=== PATIENT | male | born 1965 | race Caucasian/White ===

== ENCOUNTER 2018-09-05 10:53 | Inpatient (IN) | payer OTHER ==
[~2018-09-05] VITALS: Ht 170.2 cm; Wt 82.3 kg
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
[2018-09-05] MEDS ORDERED: SODIUM CHLORIDE 0.9% 1L BAG IV* STA (11:27)
[2018-09-05] MEDS ORDERED: [UNRECOGNIZED DRUG - CODE] PO (13:35)
[2018-09-05] MEDS ORDERED: LISI-471 PO (13:35)
[2018-09-05] MEDS ORDERED: HYDR-3980 PO (13:35)
[2018-09-05] MEDS ORDERED: CARI350T29 PO (13:35)
[2018-09-05] MEDS ORDERED: KETOROLAC 15 MG INJ IV STA (14:51)
[2018-09-05] MEDS ORDERED: MEROPENEM 1 GM/50ML(PMX) 50 ML IVPB STA (15:01)
[2018-09-05] MEDS ORDERED: morphine 4 MG/ML VIAL IV STA (15:43)
[2018-09-05] MEDS ORDERED: ONDANSETRON 4 MG INJ IV STA (15:43)
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
[2018-09-05] MEDS ORDERED: NACL 0.9% 3 ML SYG IV SCH (16:30)
[2018-09-05] MEDS ORDERED: KETOROLAC 30 MG INJ IV PRN (16:30)
[2018-09-05] MEDS ORDERED: DOCUSATE SODIUM 100 MG CAP PO PRN (16:30)
[2018-09-05] MEDS ORDERED: ONDANSETRON 4 MG INJ IV PRN (16:30)
[2018-09-05] MEDS ORDERED: MAGNESIUM HYDROXIDE 30ML CUP PO PRN (16:30)
[2018-09-05] MEDS ORDERED: ACETAMINOPHEN 325 MG TAB PO PRN (16:30)
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
[2018-09-05] MEDS ORDERED: SALINE 0.65% 45 ML NAS SPRAY NASAL PRN (18:30)
[2018-09-05] MEDS: morphine 2 MG INJ IV PRN ×2 (19:00→23:43)
[2018-09-05] MEDS: CARISOPRODOL 350 MG TAB PO PRN (19:41)
[2018-09-05 20:44] VITALS: BP 121/65; PULSE 88; RESP 18
[2018-09-05 22:04] VITALS: Ht 170.2 cm; Wt 82.3 kg
[2018-09-05] MEDS: GUAIFENESIN LA 600 MG TABSR PO SCH (22:24)
[2018-09-05] MEDS: HYDROCODONE/APAP (10/325) TAB PO PRN (22:24)
[2018-09-05] MEDS: MEROPENEM 1 GM/50ML(PMX) 50 ML IVPB SCH (22:26)
[2018-09-05] MEDS: NICOTINE (14 MG/24 HR) PATCH TRANSDERM SCH (22:44)
[2018-09-06 02:00] VITALS: BP 110/60; PULSE 87; RESP 20
[2018-09-06] MEDS: morphine 2 MG INJ IV PRN ×4 (05:59→21:12)
[2018-09-06] MEDS: MEROPENEM 1 GM/50ML(PMX) 50 ML IVPB SCH ×3 (05:59→22:08)
[2018-09-06] MEDS: PANTOPRAZOLE (EC) 40 MG TAB PO SCH (06:00)
[2018-09-06] MEDS: HYDROCODONE/APAP (10/325) TAB PO PRN ×3 (07:06→19:52)
[2018-09-06 07:50] VITALS: BP 107/73; PULSE 79; RESP 19
--- NOTE | 2018-09-06 08:08 | PN ---
Date/Time of Note Date/Time of Note DATE: 09/06/18 TIME: 08:01 Assessment/Plan VTE Prophylaxis Risk score (from Ns)>0 risk: 4 SCD applied (from Ns): Yes Pharmacological prophylaxis: LMWH Lines/Catheters IV Catheter Type (from [facility] Mid Line Urinary Cath still in place: Yes Reason Cath still needed: urinary retention Assessment/Plan Hospital Course 52-year-old male paraplegic, has neurogenic bladder and urinary retention. He had augmentation cystoplasty in the past and has been doing self- catheterization. He has been having problems with his self-catheterization. He has been getting recurrent urinary tract infections. In the emergency room I had to do urethral dilatation and insert a 14 [place] coud catheter. The catheter drained only 250 mL last night. But he still has pain therefore I did irrigate the Harper catheter and drained 500 mL. The catheter could get clogged sometime by the mucus. I will have the nurses aspirate the urine every 4 hours using irrigation tray. The urine culture is still pending. Result Diagram: 09/06/18 0706 09/06/18 0706 Results 24hrs Laboratory Tests Test 09/05/18 12:59 09/05/18 13:06 09/05/18 14:30 09/05/18 16:37 White Blood Count 7.6 Red Blood Count 5.10 Hemoglobin 14.5 Hematocrit 45.4 Mean Corpuscular Volume 89.0 Mean Corpuscular 28.4 L Hemoglobin Mean Corpuscular 31.9 L Hemoglobin Concent Red Cell Distribution 13.2 Width Platelet Count 336 Mean Platelet Volume 8.9 Immature Granulocytes % 0.700 H Neutrophils % 56.2 Lymphocytes % 33.5 Monocytes % 7.1 Eosinophils % 1.7 Basophils % 0.8 Nucleated Red Blood 0.0 Cells % Immature Granulocytes # 0.050 H Neutrophils # 4.3 Lymphocytes # 2.5 Monocytes # 0.5 Eosinophils # 0.1 Basophils # 0.1 Nucleated Red Blood 0.0 Cells # Prothrombin Time 12.7 Prothrombin Time Ratio 1.0 INR International 0.94 Normalized Ratio Activated 31.0 Partial Thromboplast Time Sodium Level 143 Potassium Level 4.1 Chloride Level 106 Carbon Dioxide Level 28 Anion Gap 9 Blood Urea Nitrogen 17 Creatinine 0.76 Est Glomerular Filtrat > 60 Rate mL/min Glucose Level 79 Calcium Level 9.6 Total Bilirubin 0.2 Direct Bilirubin 0.00 Indirect Bilirubin 0.2 Aspartate Amino 28 Transf (AST/SGOT) Alanine 19 Aminotransferase (ALT/SG PT) Alkaline Phosphatase 99 Troponin I < 0.012 Total Protein 8.2 H Albumin 4.7 Globulin 3.50 H Albumin/Globulin Ratio 1.34 POC Venous Lactate 1.3 1.3 Urine Color YELLOW Urine Clarity CLOUDY A Urine pH 5.0 Urine Specific Ethel 1.018 Urine Ketones NEGATIVE Urine Nitrite POSITIVE A Urine Bilirubin NEGATIVE Urine Urobilinogen NEGATIVE Urine Leukocyte Esterase 1+ H Urine Microscopic RBC 11 H Urine Microscopic WBC 94 H Urine Squamous FEW Epithelial Cells Urine Amorphous Crystals FEW A Urine Bacteria MODERATE Urine Hemoglobin 1+ H Urine Glucose NEGATIVE Urine Total Protein NEGATIVE Test 09/05/18 20:02 09/06/18 07:06 Lactic Acid Level 1.2 White Blood Count 6.9 Red Blood Count 4.50 L Hemoglobin 12.7 L Hematocrit 39.7 L Mean Corpuscular Volume 88.2 Mean Corpuscular 28.2 L Hemoglobin Mean Corpuscular 32.0 Hemoglobin Concent Red Cell Distribution 13.5 Width Platelet Count 293 Mean Platelet Volume 9.2 Immature Granulocytes % 0.900 H Neutrophils % 41.6 Lymphocytes % 43.1 Monocytes % 8.9 Eosinophils % 3.9 Basophils % 1.6 Nucleated Red Blood 0.0 Cells % Immature Granulocytes # 0.060 H Neutrophils # 2.9 Lymphocytes # 3.0 H Monocytes # 0.6 Eosinophils # 0.3 Basophils # 0.1 Nucleated Red Blood 0.0 Cells # Sodium Level 141 Potassium Level 4.3 Chloride Level 109 Carbon Dioxide Level 27 Anion Gap 5 Blood Urea Nitrogen Pending Creatinine Pending Est Glomerular Filtrat Pending Rate mL/min Glucose Level Pending Calcium Level Pending Magnesium Level Pending Subjective 24 Hr Interval Summary Free Text/Dictation The patient complains of pain in the suprapubic and genital area. Exam/Review of Systems Exam Vitals Vital Signs Date Temp Pulse Resp B/P (MAP) Pulse Ox O2 O2 Flow FiO2 Time Delivery Rate 09/06/18 97.9 79 19 107/73 98 Room Air 07:50 (84) Intake and Output 09/05/18 09/05/18 09/06/18 1515:00 23:00 07:00 IntakeIntake Total 50 ml 400 ml OutputOutput Total 500 ml BalanceBalance 50 ml -100 ml Exam The Harper catheter that he had drained only 250 mL last night. Patient himself states no urine has drained in the bag. I did hand irrigate the Harper catheter and drained 500 mL. The catheter does not drain some time because it gets clogged by mucous because of his augmentation cystoplasty which uses small bowel to do it. Results Results 24hrs Laboratory Tests Test 09/05/18 12:59 09/05/18 13:06 09/05/18 14:30 09/05/18 16:37 White Blood Count 7.6 Red Blood Count 5.10 Hemoglobin 14.5 Hematocrit 45.4 Mean Corpuscular Volume 89.0 Mean Corpuscular 28.4 L Hemoglobin Mean Corpuscular 31.9 L Hemoglobin Concent Red Cell Distribution 13.2 Width Platelet Count 336 Mean Platelet Volume 8.9 Immature Granulocytes % 0.700 H Neutrophils % 56.2 Lymphocytes % 33.5 Monocytes % 7.1 Eosinophils % 1.7 Basophils % 0.8 Nucleated Red Blood 0.0 Cells % Immature Granulocytes # 0.050 H Neutrophils # 4.3 Lymphocytes # 2.5 Monocytes # 0.5 Eosinophils # 0.1 Basophils # 0.1 Nucleated Red Blood 0.0 Cells # Prothrombin Time 12.7 Prothrombin Time Ratio 1.0 INR International 0.94 Normalized Ratio Activated 31.0 Partial Thromboplast Time Sodium Level 143 Potassium Level 4.1 Chloride Level 106 Carbon Dioxide Level 28 Anion Gap 9 Blood Urea Nitrogen 17 Creatinine 0.76 Est Glomerular Filtrat > 60 Rate mL/min Glucose Level 79 Calcium Level 9.6 Total Bilirubin 0.2 Direct Bilirubin 0.00 Indirect Bilirubin 0.2 Aspartate Amino 28 Transf (AST/SGOT) Alanine 19 Aminotransferase (ALT/SG PT) Alkaline Phosphatase 99 Troponin I < 0.012 Total Protein 8.2 H Albumin 4.7 Globulin 3.50 H Albumin/Globulin Ratio 1.34 POC Venous Lactate 1.3 1.3 Urine Color YELLOW Urine Clarity CLOUDY A Urine pH 5.0 Urine Specific Ethel 1.018 Urine Ketones NEGATIVE Urine Nitrite POSITIVE A Urine Bilirubin NEGATIVE Urine Urobilinogen NEGATIVE Urine Leukocyte Esterase 1+ H Urine Microscopic RBC 11 H Urine Microscopic WBC 94 H Urine Squamous FEW Epithelial Cells Urine Amorphous Crystals FEW A Urine Bacteria MODERATE Urine Hemoglobin 1+ H Urine Glucose NEGATIVE Urine Total Protein NEGATIVE Test 09/05/18 20:02 09/06/18 07:06 Lactic Acid Level 1.2 White Blood Count 6.9 Red Blood Count 4.50 L Hemoglobin 12.7 L Hematocrit 39.7 L Mean Corpuscular Volume 88.2 Mean Corpuscular 28.2 L Hemoglobin Mean Corpuscular 32.0 Hemoglobin Concent Red Cell Distribution 13.5 Width Platelet Count 293 Mean Platelet Volume 9.2 Immature Granulocytes % 0.900 H Neutrophils % 41.6 Lymphocytes % 43.1 Monocytes % 8.9 Eosinophils % 3.9 Basophils % 1.6 Nucleated Red Blood 0.0 Cells % Immature Granulocytes # 0.060 H Neutrophils # 2.9 Lymphocytes # 3.0 H Monocytes # 0.6 Eosinophils # 0.3 Basophils # 0.1 Nucleated Red Blood 0.0 Cells # Sodium Level 141 Potassium Level 4.3 Chloride Level 109 Carbon Dioxide Level 27 Anion Gap 5 Blood Urea Nitrogen Pending Creatinine Pending Est Glomerular Filtrat Pending Rate mL/min Glucose Level Pending Calcium Level Pending Magnesium Level Pending Medications Medication Current Medications Carisoprodol (Soma) 350 mg Q8H PRN PO MUSCLE SPASMS Last administered on 09/05/18at 19:41; Admin Dose 350 MG; Start 09/05/18 at 16:00 Acetaminophen/ Hydrocodone Bitart ([place] (10/)) 1 tab Q6H PRN PO PAIN LEVEL 6-10 Last administered on 09/06/18at 07:06; Admin Dose 1 TAB; Start 09/05/18 at 16:00 Lisinopril (Zestril) 20 mg DAILY PO ; Start 09/06/18 at 09:00 IV Flush (NS 3 ml) 3 ml PER PROTOCOL IV ; Start 09/05/18 at 16:30 Ondansetron HCl (Zofran Inj) 4 mg Q6H PRN IV NAUSEA/VOMITING; Start 09/05/18 at 16:30 Acetaminophen (Tylenol Tab) 650 mg Q6H PRN PO .PAIN 1-3 OR TEMP; Start 09/05/18 at 16:30 Morphine Sulfate (morphine) 2 mg Q4H PRN IV .SEVERE PAIN 7-10 Last administered on 09/06/18at 05:59; Admin Dose 2 MG; Start 09/05/18 at 16:30 Docusate Sodium (Colace) 100 mg Q12H PRN PO .CONSTIPATION; Start 09/05/18 at 16:30 Magnesium Hydroxide (Milk Of Mag) 30 ml DAILY PRN PO .CONSTIPATION; Start 09/05/18 at 16:30 Pantoprazole (Protonix Tab) 40 mg DAILY@06 PO Last administered on 09/06/18at 0 6:00; Admin Dose 40 MG; Start 09/06/18 at 06:00 Meropenem/Sodium Chloride 50 ml @ 100 mls/hr Q8 IVPB Last administered on 09/06/18at 05:59; Admin Dose 100 MLS/HR; Start 09/05/18 at 22:00 Ketorolac Tromethamine (Toradol) 30 mg Q6H PRN IV MILD TO MODERATE PAIN (1-7); Start 09/05/18 at 16:30 Nicotine (Nicoderm 14 Mg/ 24hr) 1 patch DAILY TRANSDERM Last administered on 09/05/18at 22:44; Admin Dose 1 PATCH; Start 09/05/18 at 18:00 Guaifenesin (Mucinex) 600 mg BID PO Last administered on 09/05/18at 22:24; Admin Dose 600 MG; Start 09/05/18 at 21:00 Sodium Chloride ([place]) 2 spray Q4H PRN NASAL congestion; Start 09/05/18 at 18:30 Enoxaparin Sodium (Lovenox) 40 mg DAILY SC ; Start 09/06/18 at 09:00 EDNA RÍOS MD Sep 06, 2018 08:08
--- NOTE | 2018-09-06 09:20 | PN ---
Date/Time of Note Date/Time of Note DATE: 09/06/18 TIME: 09:20 Assessment/Plan VTE Prophylaxis Risk score (from Ns)>0 risk: 4 SCD applied (from Nsg): Yes Pharmacological prophylaxis: LMWH Lines/Catheters IV Catheter Type (from Nrsg): Mid Line Urinary Cath still in place: Yes Reason Cath still needed: urinary retention Assessment/Plan Assessment/Plan 1. Acute UTI - Urology on board and recommendations appreciated. Harper placed on in ED - Awaiting Urine cultures - patient failed outpatient therapy and send by Urology for IV therapy - patient remains afebrile with nl WBC 2. h/o paraplegia - continue on muscle relaxants - pain control 3. Disposition - Urine culture pending and will adjust antibiotics based on sensitivities Result Diagram: 09/06/18 0709/06/18 0706 Results 24hrs Laboratory Tests Test 09/05/18 12:59 09/05/18 13:06 09/05/18 14:30 09/05/18 16:37 White Blood Count 7.6 Red Blood Count 5.10 Hemoglobin 14.5 Hematocrit 45.4 Mean Corpuscular Volume 89.0 Mean Corpuscular 28.4 L Hemoglobin Mean Corpuscular 31.9 L Hemoglobin Concent Red Cell Distribution 13.2 Width Platelet Count 336 Mean Platelet Volume 8.9 Immature Granulocytes % 0.700 H Neutrophils % 56.2 Lymphocytes % 33.5 Monocytes % 7.1 Eosinophils % 1.7 Basophils % 0.8 Nucleated Red Blood 0.0 Cells % Immature Granulocytes # 0.050 H Neutrophils # 4.3 Lymphocytes # 2.5 Monocytes # 0.5 Eosinophils # 0.1 Basophils # 0.1 Nucleated Red Blood 0.0 Cells # Prothrombin Time 12.7 Prothrombin Time Ratio 1.0 INR International 0.94 Normalized Ratio Activated 31.0 Partial Thromboplast Time Sodium Level 143 Potassium Level 4.1 Chloride Level 106 Carbon Dioxide Level 28 Anion Gap 9 Blood Urea Nitrogen 17 Creatinine 0.76 Est Glomerular Filtrat > 60 Rate mL/min Glucose Level 79 Calcium Level 9.6 Total Bilirubin 0.2 Direct Bilirubin 0.00 Indirect Bilirubin 0.2 Aspartate Amino 28 Transf (AST/SGOT) Alanine 19 Aminotransferase (ALT/SG PT) Alkaline Phosphatase 99 Troponin I < 0.012 Total Protein 8.2 H Albumin 4.7 Globulin 3.50 H Albumin/Globulin Ratio 1.34 POC Venous Lactate 1.3 1.3 Urine Color YELLOW Urine Clarity CLOUDY A Urine pH 5.0 Urine Specific Josephine 1.018 Urine Ketones NEGATIVE Urine Nitrite POSITIVE A Urine Bilirubin NEGATIVE Urine Urobilinogen NEGATIVE Urine Leukocyte Esterase 1+ H Urine Microscopic RBC 11 H Urine Microscopic WBC 94 H Urine Squamous FEW Epithelial Cells Urine Amorphous Crystals FEW A Urine Bacteria MODERATE Urine Hemoglobin 1+ H Urine Glucose NEGATIVE Urine Total Protein NEGATIVE Test 09/05/18 20:02 09/06/18 07:06 Lactic Acid Level 1.2 White Blood Count 6.9 Red Blood Count 4.50 L Hemoglobin 12.7 L Hematocrit 39.7 L Mean Corpuscular Volume 88.2 Mean Corpuscular 28.2 L Hemoglobin Mean Corpuscular 32.0 Hemoglobin Concent Red Cell Distribution 13.5 Width Platelet Count 293 Mean Platelet Volume 9.2 Immature Granulocytes % 0.900 H Neutrophils % 41.6 Lymphocytes % 43.1 Monocytes % 8.9 Eosinophils % 3.9 Basophils % 1.6 Nucleated Red Blood 0.0 Cells % Immature Granulocytes # 0.060 H Neutrophils # 2.9 Lymphocytes # 3.0 H Monocytes # 0.6 Eosinophils # 0.3 Basophils # 0.1 Nucleated Red Blood 0.0 Cells # Sodium Level 141 Potassium Level 4.3 Chloride Level 109 Carbon Dioxide Level 27 Anion Gap 5 Blood Urea Nitrogen 18 Creatinine 0.70 Est Glomerular Filtrat > 60 Rate mL/min Glucose Level 88 Calcium Level 8.8 Magnesium Level 2.1 Subjective 24 Hr Interval Summary Free Text/Dictation Patient doing well and states feeling better. Requesting some maintenance fluids since would like to flush the antibiotics Exam/Review of Systems Exam Vitals Vital Signs Date Temp Pulse Resp B/P (MAP) Pulse Ox O2 O2 Flow FiO2 Time Delivery Rate 09/06/18 97.9 79 19 107/73 98 Room Air 07:50 (84) Intake and Output 09/05/18 09/05/18 09/06/18 1515:00 23:00 07:00 IntakeIntake Total 50 ml 400 ml OutputOutput Total 500 ml BalanceBalance 50 ml -100 ml Results Results 24hrs Laboratory Tests Test 09/05/18 12:59 09/05/18 13:06 09/05/18 14:30 09/05/18 16:37 White Blood Count 7.6 Red Blood Count 5.10 Hemoglobin 14.5 Hematocrit 45.4 Mean Corpuscular Volume 89.0 Mean Corpuscular 28.4 L Hemoglobin Mean Corpuscular 31.9 L Hemoglobin Concent Red Cell Distribution 13.2 Width Platelet Count 336 Mean Platelet Volume 8.9 Immature Granulocytes % 0.700 H Neutrophils % 56.2 Lymphocytes % 33.5 Monocytes % 7.1 Eosinophils % 1.7 Basophils % 0.8 Nucleated Red Blood 0.0 Cells % Immature Granulocytes # 0.050 H Neutrophils # 4.3 Lymphocytes # 2.5 Monocytes # 0.5 Eosinophils # 0.1 Basophils # 0.1 Nucleated Red Blood 0.0 Cells # Prothrombin Time 12.7 Prothrombin Time Ratio 1.0 INR International 0.94 Normalized Ratio Activated 31.0 Partial Thromboplast Time Sodium Level 143 Potassium Level 4.1 Chloride Level 106 Carbon Dioxide Level 28 Anion Gap 9 Blood Urea Nitrogen 17 Creatinine 0.76 Est Glomerular Filtrat > 60 Rate mL/min Glucose Level 79 Calcium Level 9.6 Total Bilirubin 0.2 Direct Bilirubin 0.00 Indirect Bilirubin 0.2 Aspartate Amino 28 Transf (AST/SGOT) Alanine 19 Aminotransferase (ALT/SG PT) Alkaline Phosphatase 99 Troponin I < 0.012 Total Protein 8.2 H Albumin 4.7 Globulin 3.50 H Albumin/Globulin Ratio 1.34 POC Venous Lactate 1.3 1.3 Urine Color YELLOW Urine Clarity CLOUDY A Urine pH 5.0 Urine Specific Josephine 1.018 Urine Ketones NEGATIVE Urine Nitrite POSITIVE A Urine Bilirubin NEGATIVE Urine Urobilinogen NEGATIVE Urine Leukocyte Esterase 1+ H Urine Microscopic RBC 11 H Urine Microscopic WBC 94 H Urine Squamous FEW Epithelial Cells Urine Amorphous Crystals FEW A Urine Bacteria MODERATE Urine Hemoglobin 1+ H Urine Glucose NEGATIVE Urine Total Protein NEGATIVE Test 09/05/18 20:02 09/06/18 07:06 Lactic Acid Level 1.2 White Blood Count 6.9 Red Blood Count 4.50 L Hemoglobin 12.7 L Hematocrit 39.7 L Mean Corpuscular Volume 88.2 Mean Corpuscular 28.2 L Hemoglobin Mean Corpuscular 32.0 Hemoglobin Concent Red Cell Distribution 13.5 Width Platelet Count 293 Mean Platelet Volume 9.2 Immature Granulocytes % 0.900 H Neutrophils % 41.6 Lymphocytes % 43.1 Monocytes % 8.9 Eosinophils % 3.9 Basophils % 1.6 Nucleated Red Blood 0.0 Cells % Immature Granulocytes # 0.060 H Neutrophils # 2.9 Lymphocytes # 3.0 H Monocytes # 0.6 Eosinophils # 0.3 Basophils # 0.1 Nucleated Red Blood 0.0 Cells # Sodium Level 141 Potassium Level 4.3 Chloride Level 109 Carbon Dioxide Level 27 Anion Gap 5 Blood Urea Nitrogen 18 Creatinine 0.70 Est Glomerular Filtrat > 60 Rate mL/min Glucose Level 88 Calcium Level 8.8 Magnesium Level 2.1 Medications Medication Current Medications Carisoprodol (Soma) 350 mg Q8H PRN PO MUSCLE SPASMS Last administered on 09/05/18at 19:41; Admin Dose 350 MG; Start 09/05/18 at 16:00 Acetaminophen/ Hydrocodone Bitart ([place] ()) 1 tab Q6H PRN PO PAIN LEVEL 6-10 Last administered on 09/06/18at 07:06; Admin Dose 1 TAB; Start 09/05/18 at 16:00 Lisinopril (Zestril) 20 mg DAILY PO ; Start 09/06/18 at 09:00 IV Flush (NS 3 ml) 3 ml PER PROTOCOL IV ; Start 09/05/18 at 16:30 Ondansetron HCl (Zofran Inj) 4 mg Q6H PRN IV NAUSEA/VOMITING; Start 09/05/18 at 16:30 Acetaminophen (Tylenol Tab) 650 mg Q6H PRN PO .PAIN 1-3 OR TEMP; Start 09/05/18 at 16:30 Morphine Sulfate (morphine) 2 mg Q4H PRN IV .SEVERE PAIN 7-10 Last administered on 09/06/18at 05:59; Admin Dose 2 MG; Start 09/05/18 at 16:30 Docusate Sodium (Colace) 100 mg Q12H PRN PO .CONSTIPATION; Start 09/05/18 at 16:30 Magnesium Hydroxide (Milk Of Mag) 30 ml DAILY PRN PO .CONSTIPATION; Start at 16:30 Pantoprazole (Protonix Tab) 40 mg DAILY@06 PO Last administered on 09/06/18at 06:00; Admin Dose 40 MG; Start 09/06/18 at 06:00 Meropenem/Sodium Chloride 50 ml @ 100 mls/hr Q8 IVPB Last administered on 09/06/18at 05:59; Admin Dose 100 MLS/HR; Start 09/05/18 at 22:00 Ketorolac Tromethamine (Toradol) 30 mg Q6H PRN IV MILD TO MODERATE PAIN (1-7); Start 09/05/18 at 16:30 Nicotine (Nicoderm 14 Mg/ 24hr) 1 patch DAILY TRANSDERM Last administered on 09/05/18at 22:44; Admin Dose 1 PATCH; Start 09/05/18 at 18:00 Guaifenesin (Mucinex) 600 mg BID PO Last administered on 09/05/18at 22:24; Admin Dose 600 MG; Start 09/05/18 at 21:00 Sodium Chloride ([place] Sea) 2 spray Q4H PRN NASAL congestion; Start 09/05/18 at 18:30 Enoxaparin Sodium (Lovenox) 40 mg DAILY SC ; Start 09/06/18 at 09:00 ABHINAV HARRIS MD Sep 06, 2018 09:20
[2018-09-06] MEDS: GUAIFENESIN LA 600 MG TABSR PO SCH ×2 (11:09→21:13)
[2018-09-06] MEDS: LISINOPRIL 20 MG TAB PO SCH (11:10)
[2018-09-06] MEDS: NICOTINE (14 MG/24 HR) PATCH TRANSDERM SCH (11:10)
[2018-09-06] MEDS: ENOXAPARIN 40 MG/0.4 ML SYG SC SCH (11:11)
[2018-09-06] MEDS: SOD CHLORIDE 0.9% 1,000 ML IV SCH (13:01)
[2018-09-06 14:00] VITALS: BP 107/70; PULSE 82; RESP 18
[2018-09-06 20:00] VITALS: BP 120/72; PULSE 79; RESP 19
[2018-09-07] MEDS: morphine LIQ (10 MG/5 ML) CUP PO PRN ×3 (01:38→20:20)
[2018-09-07 02:00] VITALS: BP 95/56; PULSE 71; RESP 19
[2018-09-07] MEDS: MEROPENEM 1 GM/50ML(PMX) 50 ML IVPB SCH (05:35)
[2018-09-07] MEDS: PANTOPRAZOLE (EC) 40 MG TAB PO SCH (05:35)
[2018-09-07] MEDS: HYDROCODONE/APAP (10/325) TAB PO PRN ×3 (05:48→23:56)
[2018-09-07] MEDS: CARISOPRODOL 350 MG TAB PO PRN (07:01)
[2018-09-07] MEDS: SOD CHLORIDE 0.9% 1,000 ML IV SCH ×2 (07:30→13:49)
[2018-09-07 08:11] VITALS: BP 128/72; PULSE 67; RESP 18
[2018-09-07] MEDS: GUAIFENESIN LA 600 MG TABSR PO SCH ×2 (08:29→20:20)
[2018-09-07] MEDS: LISINOPRIL 20 MG TAB PO SCH (08:29)
[2018-09-07] MEDS: NICOTINE (14 MG/24 HR) PATCH TRANSDERM SCH (08:30)
[2018-09-07] MEDS: ENOXAPARIN 40 MG/0.4 ML SYG SC SCH (08:30)
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
--- NOTE | 2018-09-07 09:12 | PN ---
Date/Time of Note Date/Time of Note DATE: 09/07/18 TIME: 09:12 Assessment/Plan VTE Prophylaxis Risk score (from Nsg)>0 risk: 3 SCD applied (from Nsg): Yes Pharmacological prophylaxis: LMWH Lines/Catheters IV Catheter Type (from Nrsg): Mid Line Urinary Cath still in place: Yes Reason Cath still needed: urinary retention Assessment/Plan Assessment/Plan 1. Acute UTI - Urine cultures noted and will change to Rocephin. Patient still with flank pain and will continue IV antibiotics for now - Urology on board and appreciate recommendations. CM aware of orders for HH and supplies for muñiz care - patient remains afebrile with nl WBC 2. h/o paraplegia - continue on muscle relaxants - pain control 3. Disposition - Will adjust antibiotics based on cultures and monitor for improvement in flank pain prior to discharge Result Diagram: 09/07/18 0556 09/06/18 0706 Results 24hrs Laboratory Tests Test 09/07/18 05:56 White Blood Count 6.8 Red Blood Count 4.38 L Hemoglobin 12.5 L Hematocrit 39.2 L Mean Corpuscular Volume 89.5 Mean Corpuscular Hemoglobin 28.5 L Mean Corpuscular Hemoglobin Concent 31.9 L Red Cell Distribution Width 13.4 Platelet Count 289 Mean Platelet Volume 9.3 Immature Granulocytes % 0.700 H Neutrophils % 42.5 Lymphocytes % 44.0 Monocytes % 8.1 Eosinophils % 3.7 Basophils % 1.0 Nucleated Red Blood Cells % 0.0 Immature Granulocytes # 0.050 H Neutrophils # 2.9 Lymphocytes # 3.0 H Monocytes # 0.6 Eosinophils # 0.3 Basophils # 0.1 Nucleated Red Blood Cells # 0.0 Subjective 24 Hr Interval Summary Free Text/Dictation Patient states hes feeling better but still with flank pain and discomfort at muñiz insertion site. Denies any fevers, chills. Exam/Review of Systems Exam Vitals Vital Signs Date Temp Pulse Resp B/P (MAP) Pulse Ox O2 O2 Flow FiO2 Time Delivery Rate 09/07/18 98.3 67 18 128/72 98 08:11 (90) 09/06/18 Room Air 14:00 Intake and Output 09/06/18 09/06/18 09/07/18 1515:00 23:00 07:00 IntakeIntake Total 50 ml 1350 ml 1350 ml OutputOutput Total 550 ml 1040 ml 1200 ml BalanceBalance -500 ml 310 ml 150 ml Exam General: Patient is laying in bed and answers questions appropriately Lungs: clear to auscultation bilaterally. no wheezing or rhonchi CVS: S1, S2, regular rate and rhythm, no obvious murmurs GI: soft, non-tender to palpation, bowel sounds heard. +CVA tenderness bilatera lly Neurological: Moves upper extremities bilaterally Results Results 24hrs Laboratory Tests Test 09/07/18 05:56 White Blood Count 6.8 Red Blood Count 4.38 L Hemoglobin 12.5 L Hematocrit 39.2 L Mean Corpuscular Volume 89.5 Mean Corpuscular Hemoglobin 28.5 L Mean Corpuscular Hemoglobin Concent 31.9 L Red Cell Distribution Width 13.4 Platelet Count 289 Mean Platelet Volume 9.3 Immature Granulocytes % 0.700 H Neutrophils % 42.5 Lymphocytes % 44.0 Monocytes % 8.1 Eosinophils % 3.7 Basophils % 1.0 Nucleated Red Blood Cells % 0.0 Immature Granulocytes # 0.050 H Neutrophils # 2.9 Lymphocytes # 3.0 H Monocytes # 0.6 Eosinophils # 0.3 Basophils # 0.1 Nucleated Red Blood Cells # 0.0 Medications Medication Current Medications Carisoprodol (Soma) 350 mg Q8H PRN PO MUSCLE SPASMS Last administered on 09/07/18at 07:01; Admin Dose 350 MG; Start 09/05/18 at 16:00 Acetaminophen/ Hydrocodone Bitart ([place] (10/325)) 1 tab Q6H PRN PO PAIN LEVEL 6-10 Last administered on 09/07/18at 05:48; Admin Dose 1 TAB; Start 09/05/18 at 16:00 Lisinopril (Zestril) 20 mg DAILY PO Last administered on 09/07/18at 08:29; Admin Dose 20 MG; Start 09/06/18 at 09:00 IV Flush (NS 3 ml) 3 ml PER PROTOCOL IV ; Start 09/05/18 at 16:30 Ondansetron HCl (Zofran Inj) 4 mg Q6H PRN IV NAUSEA/VOMITING; Start 09/05/18 at 16:30 Acetaminophen (Tylenol Tab) 650 mg Q6H PRN PO .PAIN 1-3 OR TEMP; Start 09/05/18 at 16:30 Docusate Sodium (Colace) 100 mg Q12H PRN PO .CONSTIPATION; Start 09/05/18 at 16:30 Magnesium Hydroxide (Milk Of Mag) 30 ml DAILY PRN PO .CONSTIPATION; Start 09/05/18 at 16:30 Pantoprazole (Protonix Tab) 40 mg DAILY@06 PO Last administered on 09/07/18 05:35; Admin Dose 40 MG; Start 09/06/18 at 06:00 Meropenem/Sodium Chloride 50 ml @ 100 mls/hr Q8 IVPB Last administered on 09/07/18 05:35; Admin Dose 100 MLS/HR; Start 09/05/18 at 22:00 Ketorolac Tromethamine (Toradol) 30 mg Q6H PRN IV MILD TO MODERATE PAIN (1-7); Start 09/05/18 at 16:30 Nicotine (Nicoderm 14 Mg/ 24hr) 1 patch DAILY TRANSDERM Last administered on 09/07/18 08:30; Admin Dose 1 PATCH; Start 09/05/18 at 18:00 Guaifenesin (Mucinex) 600 mg BID PO Last administered on 09/07/18 08:29; Admin Dose 600 MG; Start 09/05/18 at 21:00 Sodium Chloride ([place]) 2 spray Q4H PRN NASAL congestion; Start 09/05/18 at 18:30 Enoxaparin Sodium (Lovenox) 40 mg DAILY SC Last administered on 09/07/18 08:30; Admin Dose 40 MG; Start 09/06/18 at 09:00 Sodium Chloride 1,000 ml @ 50 mls/hr Q20H IV Last administered on 09/06/18 13:01; Admin Dose 50 MLS/HR; Start 09/06/18 at 11:30 Morphine Sulfate (morphine) 6 mg Q4H PRN PO SEVERE PAIN LEVEL 7-10 Last administered on 09/07/18 08:40; Admin Dose 6 MG; Start 09/06/18 at 23:30 ABHINAV HARRIS MD Sep 07, 2018 09:12
[2018-09-07] MEDS ORDERED: morphine 2 MG INJ IV STA (11:35)
[2018-09-07] MEDS ORDERED: BISACODYL 10 MG SUPP PR PRN (12:00)
[2018-09-07] MEDS: CEFTRIAXONE 1 GM/50 ML (PMX) 50 ML IVPB SCH (13:42)
[2018-09-07 14:39] VITALS: BP 104/55; PULSE 77; RESP 17
[2018-09-07 19:52] VITALS: BP 99/55; PULSE 81; RESP 17
[2018-09-08] MEDS: morphine LIQ (10 MG/5 ML) CUP PO PRN ×5 (01:12→18:29)
[2018-09-08 02:16] VITALS: BP 106/59; PULSE 80; RESP 18
[2018-09-08] MEDS: PANTOPRAZOLE (EC) 40 MG TAB PO SCH (05:09)
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
[2018-09-08 08:25] VITALS: BP 114/67; PULSE 78; RESP 18
[2018-09-08] MEDS: HYDROCODONE/APAP (10/325) TAB PO PRN ×3 (08:33→21:56)
[2018-09-08] MEDS: LISINOPRIL 20 MG TAB PO SCH (08:33)
[2018-09-08] MEDS: NICOTINE (14 MG/24 HR) PATCH TRANSDERM SCH (08:33)
[2018-09-08] MEDS: GUAIFENESIN LA 600 MG TABSR PO SCH ×2 (08:34→20:31)
[2018-09-08] MEDS: ENOXAPARIN 40 MG/0.4 ML SYG SC SCH (08:34)
[2018-09-08] MEDS: SOD CHLORIDE 0.9% 1,000 ML IV SCH (08:34)
[2018-09-08] MEDS: CARISOPRODOL 350 MG TAB PO PRN (10:22)
[2018-09-08] MEDS: CEFTRIAXONE 1 GM/50 ML (PMX) 50 ML IVPB SCH (11:14)
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
[2018-09-08 14:25] VITALS: BP 119/62; PULSE 94; RESP 18
[2018-09-08 20:00] VITALS: BP 110/65; PULSE 87; RESP 18
[2018-09-09] MEDS: morphine LIQ (10 MG/5 ML) CUP PO PRN ×4 (00:32→14:20)
[2018-09-09 02:00] VITALS: BP 92/55; PULSE 90; RESP 18
[2018-09-09] MEDS: SOD CHLORIDE 0.9% 1,000 ML IV SCH (05:27)
[2018-09-09] MEDS: PANTOPRAZOLE (EC) 40 MG TAB PO SCH (05:30)
[2018-09-09 08:27] VITALS: BP 115/73; PULSE 84; RESP 20
[2018-09-09] MEDS: GUAIFENESIN LA 600 MG TABSR PO SCH (09:00)
[2018-09-09] MEDS: NICOTINE (14 MG/24 HR) PATCH TRANSDERM SCH (09:03)
[2018-09-09] MEDS: HYDROCODONE/APAP (10/325) TAB PO PRN ×2 (09:03→15:14)
[2018-09-09] MEDS: ENOXAPARIN 40 MG/0.4 ML SYG SC SCH (09:04)
[2018-09-09] MEDS: LISINOPRIL 20 MG TAB PO SCH (09:05)
[2018-09-09] MEDS: CEFTRIAXONE 1 GM/50 ML (PMX) 50 ML IVPB SCH (11:14)
[2018-09-09] MEDS: CARISOPRODOL 350 MG TAB PO PRN (11:14)
[2018-09-09] MEDS ORDERED: CEFT1PIG2 IVPB (12:36)
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
[2018-09-09 13:59] VITALS: BP 118/72; PULSE 88; RESP 18
== END 2018-09-09 18:35 | disposition home health service (06) | DRG 690 ==
LOC: E/R 10:53 → PP2 15:49
PROVIDERS: ADMIT Internal Medicine; ATTEND Internal Medicine
PROC: 0T9B70Z Drainage of Bladder with Drainage Device, Via Natural or Artificial Opening (ICD-10-PCS; principal; 2018-09-05)
DX: N39.0 Urinary tract infection, site not specified (principal); G82.20 Paraplegia, unspecified; B96.20 Unspecified Escherichia coli [E. coli] as the cause of diseases classified elsewhere; N32.3 Diverticulum of bladder; N31.9 Neuromuscular dysfunction of bladder, unspecified; R33.9 Retention of urine, unspecified; F17.200 Nicotine dependence, unspecified, uncomplicated; Z16.20 Resistance to unspecified antibiotic
CPT/HCPCS: 36415; 71045; 74176; 80048; 80053; 81001; 83605; 83735; 84484; 85025; 85610; 85730; 87040; 87086; 93005; 96374; 96375; A4310; J0696; J1650; J1885; J2185; J2270; J2405; J7030; P9612